=== PATIENT | female | born 1965 | race Caucasian/White ===

== ENCOUNTER 2018-12-14 12:26 | Emergency (ER) | payer OTHER ==
[~2018-12-14] VITALS: Ht 167.6 cm; Wt 80.7 kg
[2018-12-14 12:34] VITALS: BP 141/91
--- NOTE | 2018-12-14 12:42 | NUR ---
ASSISTED PT TO WAIT IN THE LOBBY AND INFORMED PT WILL HER IN WHEN A BED IS AVAILABLE.
[2018-12-14] MEDS ORDERED: SODIUM CHLORIDE FLUSH 10 ML SYR IVF STA (12:47)
[2018-12-14 13:43] LABS: BASOPHILS % (AUTO) 0.3 % (0.0-2.0); EOSINOPHILS % (AUTO) 0.2 % (0.0-4.0); HEMATOCRIT 38.5 % (36-48); LYMPHOCYTES # (AUTO) 0.9 K/uL (2.5-16.5); LYMPHOCYTES % (AUTO) 17.3 % (20.5-51.1); MEAN CORPUSCULAR HEMOGLOBIN 32 pg (27-31); MEAN CORPUSCULAR HGB CONC 34 g/dL (33-37); MEAN CORPUSCULAR VOLUME 96.4 fL (80-94); MONOCYTES # (AUTO) 0.2 K/uL (0.8-1.0); MONOCYTES % (AUTO) 4.2 % (1.7-9.3); NEUTROPHILS # (AUTO) 3.9 K/uL (1.8-7.7); PLATELET COUNT (AUTO) 182 K/uL (140-450); RED CELL DISTRIBUTION WIDTH 13.9 % (11.6-13.7); WHITE BLOOD COUNT (AUTO) 5.1 K/uL (4.8-10.8)
--- NOTE | 2018-12-14 13:45 | NUR ---
PT PRESENTS TO THE ED WITH C/O NAUSEA, VOMITING, APPETITE CHANGES AND BODYACHES X 1 DAY. PT DENIES DIARRHEA AT THIS TIME. PT STATES HER BODY FEELS LIKE ITS "THROBBING" AND RATES PAIN 5/10 AT THIS TIME. PT POSITIONED FOR COMFORT AND LIGHTS IN ROOM ARE DIMMED. BED RAILS UP X 1. ER MD TO SEE PT. BOYD HX: HTN, SM, HIGH CHOLESTEROL RX: METFORMIN, ATVORSTATIN, PAROXETINE, BENZEPRIL
[2018-12-14 14:02] LABS: ALBUMIN 3.8 g/dL (3.4-5.0); ANION GAP 14.3 (8-16); CARBON DIOXIDE 28.4 mmol/L (21-32); CREATININE 0.9 mg/dL (0.6-1.3); POTASSIUM 3.7 mmol/L (3.5-5.1); TOTAL BILIRUBIN 1.8 mg/dL (0.0-1.0)
--- NOTE | 2018-12-14 14:15 | NUR ---
PT RESTING IN BED. WILL CONTINUE TO MONITOR.
--- NOTE | 2018-12-14 14:20 | NUR ---
Patient being evaluated by ER MD SENIOR at bedside.
[2018-12-14] MEDS ORDERED: KETOROLAC 15 MG/ML VIAL IVP ONE (14:35)
[2018-12-14] MEDS ORDERED: NACL 0.9% 1,000 ML IV ONE (14:35)
[2018-12-14] MEDS ORDERED: ONDANSETRON 4 MG/2 ML VIAL IVP ONE (14:35)
--- NOTE | 2018-12-14 16:34 | NUR ---
PT LAYING IN BED, RR EVEN AND UNLABORED. REPORTS SOME IMPROVEMENT WITH PAIN, 5/10 BODYACHES AT THIS TIME. VSS. ALL NEEDS MET.
[2018-12-14 17:05] VITALS: BP 94/59
--- NOTE | 2018-12-14 17:06 | NUR ---
Patient discharged with v/s stable. Written and verbal after care instructions given and explained. Patient alert, oriented and verbalized understanding of instructions. Ambulatory with steady gait. All questions addressed prior to discharge. ID band removed. Patient advised to follow up with PMD. Rx of ZOFRAN ODT given. Patient educated on indication of medication including possible reaction and side effects. Opportunity to ask questions provided and answered.
== END 2018-12-14 17:06 | disposition home or self-care (01) ==
LOC: MED 12:26
DX: A08.4 Viral intestinal infection, unspecified (principal); F32.9 Major depressive disorder, single episode, unspecified; E11.9 Type 2 diabetes mellitus without complications; I10 Essential (primary) hypertension; Z90.49 Acquired absence of other specified parts of digestive tract
CPT/HCPCS: 36415; 80053; 81002; 81025; 85025; 96361; 96374; 96375; 99283; J1885; J2405; J7030